=== PATIENT | female | born 1980 | race Caucasian/White ===

== ENCOUNTER 2022-10-29 23:58 | Emergency (ER) | payer OTHER, SELFPAY ==
--- NOTE | ~2022-10-29 | XR_ITS ---
XR wrist RT min 3V DATE: 10/30/2022 00:24 INDICATION: Postoperative reduction examination TECHNIQUE: COMPARISON: None FINDINGS: IMPRESSION: Reviewed, dictated and finalized at location A. IMPRESSION:
--- NOTE | ~2022-10-29 | XR_ITS ---
Right wrist Technique: PA, oblique, lateral, and ulnar deviation views were obtained. Clinical History: Post reduction COMPARISON: 10/30/2022 at 12:19 AM Findings: Patient is status post closed reduction of distal radial fracture with placement of cast ov er the wrist. There is transverse fracture of the distal radius, without intra-articular extension id entified. There is mild to moderately improved alignment of the fracture on the lateral view. There i s decreased dorsal displacement and probable decreased, but persistent dorsal angulation. No other fr acture identified. Soft tissues are unremarkable. Impression: Mildly improved alignment overall distal radial fracture following closed reduction and casting. Reviewed, dictated and finalized at location M. Impression: Mildly improved alignment overall distal radial fracture following closed reduc tion and casting.
[2022-10-30] VITALS (7 sets, daily range): BP systolic 110–119; BP diastolic 67–79; PULSE 60–89; RESP 13–18; TEMP 36.9; O2SAT 98–100
[2022-10-30] MEDS: fentaNYL CITRATE INJ (*CRX) 100 MCG/2 ML VIAL 50 MCG IV PUSH (02:41)
[2022-10-30] MEDS: LIDOCAINE HCL 1% LOCAL INJ 10 ML VIAL (04:00)
--- NOTE | 2022-10-30 04:27 | ED.GENADULT ---
HPI - General Adult General Chief complaint: Extremity Injury, Upper Stated complaint: R wrist injury Time Seen by Provider: 10/30/22 01:55 History of Present Illness HPI narrative: Patient 42-year-old female who presents the emergency room with chief complaint of right wrist pain. The patient reports that she fell on an outstretched wrist reports that she has a deformity of the distal radius and reports no other laceration reports no head injury Related Data Allergies Allergy/AdvReac Type Severity Reaction Status Date / Time No Known Allergies Allergy Verified 10/07/14 12:58 Review of Systems Review of Systems: A 10 system review of systems was completed on the patient and is negative except for what is stated in the HPI. Nursing and ancillary documentation was reviewed. Exam Narrative: GENERAL: Well-appearing, well-nourished, and in no acute distress. HEAD: Normocephalic, atraumatic. EYES: PERRLA and EOMI. ENT: Nares clear, no rhinorrhea or epistaxis. Mucous membranes moist. NECK: Supple. CHEST: Clear to auscultation. No respiratory distress. HEART: Regular rate and rhythm. No murmur heard. Normal peripheral pulses. ABDOMEN: Soft, nontender, nondistended, normal active bowel sounds. EXTREMITIES: Normal range of motion. No edema. Deformity present of the right distal radius intact pulse intact sensation no laceration SKIN: Warm, dry, no rash. NEURO: No focal deficits. Alert and oriented x3. PSYCH: Normal mood and affect. Course Vital Signs Vital signs: Vital Signs Temperature 36.9 C 10/30/22 00:00 Pulse Rate 89 10/30/22 00:00 Respiratory Rate 18 10/30/22 00:00 Blood Pressure 119/75 10/30/22 00:00 Pulse Oximetry 100 10/30/22 00:00 Oxygen Delivery Room Air 10/30/22 00:00 Temperature 36.9 C 10/30/22 00:00 Pulse Rate 60 10/30/22 03:45 Respiratory Rate 14 10/30/22 03:45 Blood Pressure 114/68 10/30/22 03:45 Pulse Oximetry 98 10/30/22 03:45 Oxygen Delivery Room Air 10/30/22 00:00 Procedures Orthopedic Fracture Reduction Fracture #1: Fracture Reduction date: 10/30/22 Fracture Reduction time: 04:27 Time Out Performed: Yes Side: right Fracture Reduction Location: radius Analgesia: hematoma block Pre-Procedure Neuro Vascular Exam: normal Technique: direct manipulation Post Reduction X-rays Demonstrate: acceptable reduction Post-reduction neuro exam: intact Post-reduction vascular exam: intact Splint Applied: Yes Patient Tolerated Procedure: well Medical Decision Making [facility] Narrative Medical decision making narrative: Differential diagnosis includes fracture, dislocation, Plain film x-rays were obtained which showed a displaced distal radius fracture A hematoma block was performed on the patient and the fracture was reduced there was improvement in the angulation of the fracture splint was applied Vital Signs Vital Signs: Vital Signs Temperature 36.9 C 10/30/22 00:00 Pulse Rate 89 10/30/22 00:00 Respiratory Rate 18 10/30/22 00:00 Blood Pressure 119/75 10/30/22 00:00 Pulse Oximetry 100 10/30/22 00:00 Oxygen Delivery Room Air 10/30/22 00:00 Temperature 36.9 C 10/30/22 00:00 Pulse Rate 60 10/30/22 03:45 Respiratory Rate 14 10/30/22 03:45 Blood Pressure 114/68 10/30/22 03:45 Pulse Oximetry 98 10/30/22 03:45 Oxygen Delivery Room Air 10/30/22 00:00 Discharge Plan Discharge Clinical Impression: Distal radial fracture Qualifiers: Encounter type: initial encounter Fracture type: closed Fracture morphology: unspecified fracture morphology Laterality: right Qualified Code(s): S52.501A - Unspecified fracture of the lower end of right radius, initial encounter for closed fracture Patient Disposition: Home, Self-Care Condition: Stable Instructions: Antibiotic Form, Arm Fracture in Adults (ED), How to Use a Sling (ED)
== END 2022-10-30 04:50 | disposition home or self-care (01) ==
PROVIDERS: Emergency Provider Emergency Medicine
DX: S52.591A Other fractures of lower end of right radius, initial encounter for closed fracture (principal); W01.0XXA Fall on same level from slipping, tripping and stumbling without subsequent striking against object, initial encounter
CPT/HCPCS: 25505; 73100; 73110; 96374; 99285; A4565; J3010

== ENCOUNTER 2022-11-04 13:05 | Outpatient (CLI) | payer OTHER, SELFPAY ==
--- NOTE | 2022-11-04 15:31 | ECG_ITS ---
Measurements Intervals [place] Rate: 87 P: 56 NE: 135 QRS: 42 QRSD: 91 T: 64 QT: 372 QTc: 450 Interpretive Statements SINUS RHYTHM NO PREVIOUS ECG AVAILABLE FOR COMPARISON Electronically Signed On 11-05-2022 8:45:07 CDT by Rachael Ball M.D.
== END 2022-11-04 13:06 | disposition home or self-care (01) ==
PROVIDERS: Visit Provider Orthopaedic Surgery
DX: F17.210 Nicotine dependence, cigarettes, uncomplicated (principal)
CPT/HCPCS: 93005

== ENCOUNTER 2022-11-07 01:51 | Day surgery (SDC) | payer OTHER, SELFPAY ==
[2022-11-02 10:07] VITALS: BMI 27.2
--- NOTE | 2022-11-02 10:13 | PC.NURSE ---
Report to the Outpatient Waiting Room, entrance under the green pavilion located off [facility], at time 6:00 on date 11/07/22. Planned Procedure Time: 7:30. Time changes happen often and if your time is changed the preop area will call you the afternoon before. - You and your visitor will be asked to self-screen and do not enter if you have any COVID symptoms. - A mask is optional within the hospital at this time. Patients may have clear liquids (water, carbonated beverages, clear teas, apple juice) until 3 hours prior to surgery (4:30) with a maximum of 20 ounces. - No food from midnight until time of surgery Take the following medications with a SIP of water the morning of surgery: PAIN PILL IF NEEDED DO NOT STOP ANY OF YOUR OTHER PRESCRIPTION MEDICATIONS PRIOR TO SURGERY?EXCEPT THE FOLLOWING Medications to discontinue per physician: VITAMINS Date to take last dose: 11/03/22 Please no make-up, nail [place] islander, hairspray, perfume, deodorant, or body powder the day of surgery. No jewelry (including any body piercings) or valuables the day of surgery, leave them at home. Please take a shower or bath the night before, or the morning of, surgery with an antibacterial soap. Wear comfortable, loose fitting clothing. - Jewelry must be removed prior to entering the operating room. Rings and piercings that are not removed may be cut off. - The hospital will not accept responsibility for valuables. - Please leave all valuables, including medications, at home the day of surgery. If you are going home after surgery, a licensed hazmat tanker driver must drive you home. - NO public transportation without another adult if you receive anesthesia. - We recommend that an adult stay with you for 24 hours following discharge. - We also recommend that you do not drive, make important decision, drink alcoholic beverages, or take any drugs that were not prescribed by your health care provider for at least 24 hours after your discharge time. Follow any additional instructions given to you from your surgeon. If you or anyone in your household have experienced Covid symptoms in the past week, please notify your surgeon or the nurse liaison at the phone number below for possible testing. Telephone instructions given to PT - BEN DAVIDSON and asked if any additional questions and then verbalized understanding. Patient advised to call surgeon office or pre surgery nurse liaison [phone] if any additional questions.
[2022-11-07] VITALS (8 sets, daily range): BP systolic 104–125; BP diastolic 68–88; PULSE 69–99; RESP 10–16; TEMP 36.3–36.6; O2SAT 94–99
--- NOTE | ~2022-11-07 | XR_ITS ---
EXAMINATION: XR surgery orthopedic DATE: 11/07/2022 7:30 CDT INDICATION: ORIF RT WRIST . TECHNIQUE: 3 fluoroscopic images of the right wrist were obtained during ORIF right wrist performed b y the surgeon. I was not present in the operating room. Fluoroscopy exposure time was 13.5 seconds. A ir Kerma 0.2 mGy. DAP [id number] mGym2. COMPARISON: 10/30/2022 FINDINGS: Screw and plate fixation of the distal radius, fixing a distal radial fracture into near-anatomic ali gnment. IMPRESSION: Fluoroscopic documentation of ORIF right wrist. Please refer to the operative note for complete proce dural details . Reviewed, dictated and finalized at location K. IMPRESSION: Fluoroscopic documentation of ORIF right wrist. Please refer to the operative n ote for complete procedural details .
[2022-11-07] MEDS: LACTATED RINGERS 1,000 ML 30 ML IV CONT ×2 (06:45→09:25)
[2022-11-07] MEDS: KETOROLAC 15 MG/ML VIAL (*BKC) IV PUSH (06:45)
[2022-11-07] MEDS: ACETAMINOPHEN 500 MG TABLET 1000 MG PO (06:45)
--- NOTE | 2022-11-07 06:50 | WPDANESEPPF ---
Anes - Initial Pre Proc Eval Procedure: Operation Date: 11/07/22 07:30 Proposed Procedures p Open Reduction Internal Fixation Right Wrist Fracture - Lopez Ojeda MD Date/Time: 11/07/22 06:50 Surgeon: Lopez Ojeda MD Pre Op Diagnosis: Rt Wrist Fx Patient Data Age: 42 Gender: F Height: 1.89 m Weight: 97.55 kg Allergies Allergy/AdvReac Type Severity Reaction Status Date / Time No Known Allergies Allergy Verified 11/02/22 10:07 Home Medications Medication Instructions Recorded Confirmed Type hydrocodone 5 mg-acetaminophen 325 1 tablet PO Q6H PRN pain 3 days 11/01/22 11/02/22 Rx mg tablet #20 tabs multivitamin 1 tablet PO DAILY 11/02/22 11/02/22 History Patient hx anesthesia problems: none Family hx anesthesia problems: none Results Review: All pre-operative results and documents have been reviewed as part of the pre-operative evaluation. FOR[facility]LY [facility] Social History Social History Smoking packs per day: 1 Smoking cigarettes per day: 20.0 Years smoked: 20 Smoking pack-years: 20.00 Smoking status: Current every day smoker Tobacco type: cigarettes Alcohol intake: never Substance use: current Substance use type: marijuana Living arrangements: with family Additional living arrangements comments: SON Spiritual care concerns: No Anes - Eval Final PreProcedure Day of Procedure 11/07/22 06:50 Patient weight: overweight Heart: regular rate and rhythm Lungs: decreased breath sounds Airway: Mallampati scale class II Neurological: alert and oriented Last oral intake: >/= 8 hours ASA classification: III Emergent: no Anesthetic plan: proceed Anesthesia type and monitoring: general LMA and standard monitoring Results Review: All pre-operative results and documents have been reviewed as part of the pre-operative evaluation. Informed Consent: The patient's anesthetic plan and its attendant risks and benefits were discussed with the patient/family/POA. Questions were solicited and answers provided to the satisfaction of the patient/family/POA.
--- NOTE | 2022-11-07 07:17 | WPDHPUPDATE1 ---
History and Physical Update Update Date/Time: 11/07/22 07:17 History and Physical has been reviewed, including an updated exam of the patient. There are NO changes in the patient's condition. Risks, benefits, and alternatives have been discussed and questions answered. Patient agrees to proceed with procedure.
[2022-11-07] MEDS: ceFAZolin 2 GM/D5W 50 ML 2 GM/50 ML BAG IVPB (07:34)
[2022-11-07] MEDS: BUPivacaine HCL 0.5% 10 ML AMP INFILTRATE (08:27)
--- NOTE | 2022-11-07 08:53 | W.PM.PROC2 ---
Procedure Note - Detailed Date of Procedure 11/07/22 Pre-op Diagnosis Rt Wrist Fx With comminution Post-op Diagnosis Same Procedure Performed Open reduction internal fixation right wrist fracture with fixation of 3 fragments. Surgeon Lopez Ojeda MD Government Program Manager 1st assistant director of residence life Anesthesia General Indications 42-year-old woman who fell on her right outstretched hand and sustained distal radius fracture with comminution and displacement. Presents now for operative treatment. Description of Procedure After informed consent the operative extremity was marked in the preoperative holding area. Patient received intravenous antibiotics. Patient taken to the operating room where they underwent general anesthesia. Positioned supine on operating table. Time-out performed confirming the patient, patient's site of surgery and the plan. Right upper extremity prepped and draped in the usual sterile surgical fashion using a ChloraPrep skin solution. Hand and wrist exsanguinated and arm tourniquet inflated to 225 mmHg. Standard volar flexor carpi radialis incision utilized. Fifteen blade knife used to make longitudinal incision. Flexor carpi radialis tendon identified tendon sheath incised in line with skin incision. Tendon retracted to protect the neurovascular elements. Floor of the tendon sheath incised with a 15 blade knife. Flexor pollicis retracted medial. pronator quadratus then divided off the watershed line and reflected ulnarward to expose the distal radius and the fracture. Fracture was then reduced provisionally pinned. Image intensification confirm reduction. Fixation achieved with the distal radius volar plate. This was provisionally pinned into place and confirmed with image intensification. Fixation to the proximal fragment with a 3.5 mm screw. Distal fracture fixation achieved with 2.0 mm locking pegs and 2.0 mm fully threaded locking screws for the radial styloid. Fixation was then completed proximally with the remaining 3.5 mm screws. Final reduction of the fracture, alignment of the wrist joint and placement of the hardware verified with image intensification. Wound thoroughly irrigated with antibiotic solution. Pronator repaired with 3 0 Monocryl interrupted suture. Skin closed with interrupted subcutaneous 000 Monocryl interrupted suture and running 000 Monocryl subcuticular stitch. Local anesthetic with 0.5% Marcaine. Sterile dressing applied. Padded dressing and splint then applied. Tourniquet released and good capillary refill noted in the fingers and thumb. Patient awoke from anesthesia, extubated and taken to the recovery room in stable condition. All sponge and instrument counts correct at the end of case. [employer] volar distal radius locking plate and screws Estimated Blood Loss 5 Tourniquet Time 45 Drains No Packing No Pathology None sent Condition Stable Disposition PACU [facility] Billing Surgery - Charge Forward: Surgery Billing ([id number])
[2022-11-07] MEDS: fentaNYL CITRATE INJ (*CRX) 100 MCG/2 ML VIAL 25 MCG IV PUSH ×5 (08:54→09:20)
[2022-11-07] MEDS: oxyCODONE HCL (*CRX) 5 MG TAB IR PO (10:08)
== END 2022-11-07 10:55 | disposition home or self-care (01) ==
PROVIDERS: Visit Provider Orthopaedic Surgery
PROC: (CPT 25575; principal; 2022-11-07 07:30)
DX: S52.501A Unspecified fracture of the lower end of right radius, initial encounter for closed fracture (principal); W19.XXXA Unspecified fall, initial encounter; F17.210 Nicotine dependence, cigarettes, uncomplicated
CPT/HCPCS: 25609; 99199; A9270; C1713; J0690; J1100; J1170; J1885; J2250; J2405; J2704; J3010; J7120